=== PATIENT | female | born 1965 | race Hispanic/Latino ===

== ENCOUNTER 2018-02-15 11:37 | Emergency (ER) | payer BC, OTHER ==
[2018-02-15] MEDS ORDERED: Potassium ACETATE 40 MEQ/20 ML VIAL IV ONE (12:11)
[2018-02-15] MEDS ORDERED: Phenazopyridine HCl 97.5 MG TABLET ONE (12:11)
[2018-02-15 12:24] LABS: Bilirubin Small (Negative); Blood, Urine Large (Negative); Glucose, Urine (Dipstick) Negative (Negative); Leukocyte Trace (Negative); Nitrite Positive (Negative); Protein, Urine (Dipstick) 100 mg/dL (Neg-Trace); Urobilinogen 0.2 mg/dL (0.2-1.0)
[2018-02-15 12:28] LABS: Clarity CLOUDY (Clear)
[2018-02-15 12:29] LABS: Pregnancy Test - Urine (BHCG) Negative (Negative); Pregu Control Background? CLEAR/WHITE (CLR/WHITE); Pregu Control Bar Appear? YES (CONTROL BAR); Specific Gravity 1.023 (1.002-1.036); Specific Gravity, Urine 1.023 (1.002-1.036)
[2018-02-15 12:34] LABS: Bacteria/HPF 3+ HPF (None Seen); Hyaline Casts/LPF NONE SEEN LPF (0-3 Hyaline); RBC/HPF GREATER THAN 50-TNTC HPF (0-3); Squamous Epithelial 0-3 HPF (0-3); WBC/HPF 0-3 HPF (0-3)
--- NOTE | 2018-02-15 13:30 | CT ---
CT ABDOMEN AND PELVIS WITHOUT CONTRAST: 02/15/18 HISTORY: Abdominal pain, bladder pain, exacerbated by urinating. FINDINGS: Absence of oral and IV contrast reduces the sensitivity of the exam particularly for the evaluation o f solid organs and bowel. The lung bases are clear. No free air or free fluid is seen in the abdomen or pelvis. No calcified ga llstones are seen. Bilateral renal calculi are present. No calculi are noted in the ureters or the urinary bladder. No h ydroureteronephrosis is noted on either side. There is no evidence of aneurysmal dilatation of the abdominal aorta. the small bowel loops are not a bnormally dilated. Uterus and ovaries are present. There are mild degenerative changes in the spine. IMPRESSION: Nonobstructing bilateral renal calculi. POS: JENIFER
[2018-02-15] MEDS ORDERED: HYDROcodone/Acetaminophen 5/325 mg Tablet ONE (13:59)
[2018-02-15] MEDS ORDERED: Ciprofloxacin 500 MG TAB ONE (14:00)
== END 2018-02-15 14:03 | disposition home or self-care (01) ==
LOC: ERS 11:37
DX: N30.91 Cystitis, unspecified with hematuria (principal); Z87.442 Personal history of urinary calculi
CPT/HCPCS: 74176; 81003; 81015; 81025; 87077; 87086; 87186

== ENCOUNTER 2018-03-04 14:21 | Outpatient (CLI) | payer BC ==
--- NOTE | 2018-03-04 15:22 | ULT ---
PELVIC ULTRASOUND: HISTORY: Pelvic pain. COMPARISON: None. TECHNIQUE: Transabdominal and endovaginal imaging of the pelvis is performed. Ovaries are interrogated with gra y scale, color flow, Doppler imaging, and spectral waveform analysis. FINDINGS: Uterus is identified, without myometrial masses. Uterus measures 9.7 x 5.6 x 5.3 cm. Endometrium is poorly defined. There appears to be a complex nabothian cyst in the lower uterine segment measuring 1.1 cm. Right ovary has a normal echotexture measuring 1.5 x 2.3 x 2.0 cm. The left ovary may have a complex , septated cyst. Evaluation of the left ovary may have a complex, septated cyst. Evaluation of the left ovary is markedly limited. Possible left ovary measuring 1.9 x 1.8 x 2.9 cm. There is no free fluid. OVARIAN DOPPLER: There is vascular flow to the right ovary and the possible left ovary. IMPRESSION: Suboptimal evaluation of the left ovary as well as the endometrium. Pelvic MRI is recommended. POS: JENIFER
== END 2018-03-04 14:22 | disposition home or self-care (01) ==
LOC: BICULT 14:21
PROVIDERS: ATTEND Nurse Practitioner Family
DX: R10.2 Pelvic and perineal pain (principal)
CPT/HCPCS: 76856

== ENCOUNTER 2019-09-01 09:18 | Outpatient (CLI) | payer BC ==
--- NOTE | 2019-09-01 11:02 | RAD ---
TWO VIEW CHEST: HISTORY: Rheumatoid arthritis. COMPARISON: A portable film from 2013. Lungs appear clear. No significant interstitial thickening. Heart and mediastinum appear normal. V asculature normal. Osseous structures unremarkable. IMPRESSION: Unremarkable chest. POS: AGW
--- NOTE | 2019-09-01 11:17 | RAD ---
CERVICAL SPINE TOTAL OF 8 VIEWS: Lateral views obtained with neutral, flexion, and extension. INDICATION: Rheumatoid arthritis. FINDINGS: There are degenerative changes seen at C5-6. There is loss of disk space at C5-6 with anterior osteo phytes. Slight posterior listhesis at C5-6 with posterior spondylosis. Mild anterolisthesis at C4-5 measured at 3 mm. Minimal anterolisthesis at C3-4. Slight anterolisthe sis is also noted at C6-7. Mild facet hypertrophy at multiple levels. There is slight anterolisthesis seen at C3-4, C4-5, and C6-7 that does not appear to significantly ch breana with flexion, but it does reduce at all levels with extension. IMPRESSION: 1. Prominent degenerative changes at the C5-6 level with disk narrowing with spurring and posterior spondylosis with slight posterior listhesis. 2. There is mild anterolisthesis at C3-4, C4-5, and C6-7 with neutral and flexion positions. The li sthesis at each of these levels appears to reduce with extension. POS: MILADIS
== END 2019-09-01 09:19 | disposition home or self-care (01) ==
LOC: BICRAD 09:18
PROVIDERS: ATTEND Internal Medicine Rheumatology
DX: M05.79 Rheumatoid arthritis with rheumatoid factor of multiple sites without organ or systems involvement (principal); M47.812 Spondylosis without myelopathy or radiculopathy, cervical region; M43.12 Spondylolisthesis, cervical region; M46.02 Spinal enthesopathy, cervical region; M50.322 Other cervical disc degeneration at C5-C6 level
CPT/HCPCS: 71046; 72052

== ENCOUNTER 2021-12-25 09:26 | Outpatient (CLI) | payer BC | END 2021-12-25 09:27 | disposition home or self-care (01) | LOC: BICMAMMO 09:26 | PROVIDERS: ATTEND Nurse Practitioner Family | DX: Z12.31 Encounter for screening mammogram for malignant neoplasm of breast (principal); Z13.820 Encounter for screening for osteoporosis; M81.0 Age-related osteoporosis without current pathological fracture; M85.851 Other specified disorders of bone density and structure, right thigh; M85.852 Other specified disorders of bone density and structure, left thigh; Z80.3 Family history of malignant neoplasm of breast; Z91.89 Other specified personal risk factors, not elsewhere classified; Z87.39 Personal history of other diseases of the musculoskeletal system and connective tissue | CPT/HCPCS: 77063; 77067; 77080 ==

== ENCOUNTER 2023-02-18 10:04 | Outpatient (CLI) | payer BC | END 2023-02-18 10:05 | disposition home or self-care (01) | LOC: LABBT 10:04 | PROVIDERS: ATTEND Specialist | DX: Z01.818 Encounter for other preprocedural examination (principal); J38.3 Other diseases of vocal cords | CPT/HCPCS: 85014; 93005; 93010 ==

== ENCOUNTER 2023-02-19 06:24 | Day surgery (SDC) | payer BC ==
[2023-02-18 11:06] VITALS: BMI 25.0
[2023-02-19] MEDS ORDERED: fentaNYL PF 100 MCG/2 ML SYRINGE ONE (07:01)
[2023-02-19] MEDS ORDERED: PROPOFOL 20 ML ONE ×2 (07:01→07:34)
[2023-02-19] MEDS ORDERED: EPINEPHrine 1 MG/ML VIAL ONE (07:46)
[2023-02-19] MEDS ORDERED: Ketorolac Tromethamine 30 MG/ML VIAL ONE (08:00)
[2023-02-19] MEDS ORDERED: Succinylcholine 200 MG/10 ml SYRINGE FS ONE (08:00)
[2023-02-19] MEDS ORDERED: PROPOFOL 200 MG/20 ML VIAL ONE (08:00)
[2023-02-19] MEDS ORDERED: Lidocaine 1% PF 5 ML VIAL ONE (08:00)
[2023-02-19] MEDS ORDERED: Ondansetron PF 4 MG/2 ML Vial ONE (08:00)
[2023-02-19] MEDS ORDERED: Lidocaine 1% MPF 2 ML VIAL ONE (08:11)
== END 2023-02-19 10:25 | disposition home or self-care (01) ==
LOC: SDC 06:24
PROVIDERS: ATTEND Specialist
PROC: 0CBS8ZX Excision of Larynx, Via Natural or Artificial Opening Endoscopic, Diagnostic (ICD-10-PCS; principal; 2023-02-19)
DX: J38.7 Other diseases of larynx (principal); R07.0 Pain in throat; K21.9 Gastro-esophageal reflux disease without esophagitis; Z88.0 Allergy status to penicillin; Z88.2 Allergy status to sulfonamides
CPT/HCPCS: 88305; J0171; J1885; J2405; J2704

== ENCOUNTER 2023-03-13 12:48 | Outpatient (CLI) | payer BC | END 2023-03-13 12:49 | disposition home or self-care (01) | LOC: BICULT 12:48 | PROVIDERS: ATTEND Internal Medicine Gastroenterology | DX: K21.9 Gastro-esophageal reflux disease without esophagitis (principal); R79.89 Other specified abnormal findings of blood chemistry | CPT/HCPCS: 76705 ==

== ENCOUNTER 2023-04-20 16:00 | Outpatient (CLI) | payer BC | END 2023-04-20 16:01 | disposition home or self-care (01) | LOC: SLEEPLAB 16:00 | PROVIDERS: ATTEND Family Medicine | DX: G47.33 Obstructive sleep apnea (adult) (pediatric) (principal); R53.83 Other fatigue; R09.89 Other specified symptoms and signs involving the circulatory and respiratory systems; R51.9 Headache, unspecified | CPT/HCPCS: 95800 ==

== ENCOUNTER 2024-10-28 11:34 | Outpatient (CLI) | payer BC | END 2024-10-28 11:35 | disposition home or self-care (01) | LOC: BICRAD 11:34 | PROVIDERS: ATTEND Internal Medicine Gastroenterology | DX: T18.3XXA Foreign body in small intestine, initial encounter (principal) | CPT/HCPCS: 74018 ==

== ENCOUNTER 2024-12-14 20:58 | Emergency (ER) | payer BC ==
[2024-12-14] MEDS ORDERED: Ketorolac Tromethamine 30 MG (1 mL) VIAL ONE (22:24)
[2024-12-14 22:48] LABS: #Basophils 0.03 10x3/uL (0.0-0.2); #Eosinophils 0.10 10x3/uL (0.0-0.7); #Monocytes 0.60 10x3/uL (0.11-0.59); #Neutrophils 4.59 10x3/uL (1.40-6.50); %Basophils 0.4 % (0.0-1.0); %Eosinophils 1.3 % (0.0-10.0); %Lymphocytes 31.4 % (21.0-51.0); %Monocytes 7.7 % (0.0-10.0); %Neutrophils 58.7 % (42.0-75.0); Hematocrit 39.7 % (36.0-47.0); Hemoglobin 12.7 g/dL (12.0-16.0); Mean Corpuscular Hemoglobin 30.7 pg (27.0-31.0); Mean Corpuscular Volume 95.9 fL (78.0-98.0); Platelet Count 281 10x3/uL (130-400); Red Blood Cell (RBC) Count 4.14 mill/uL (4.20-5.40); White Blood Cell (WBC) Count 7.81 10x3/uL (4.8-10.8)
[2024-12-14 23:10] LABS: ALT (SGPT) 9 U/L (Less than 34); AST (SGOT) 16 U/L (11-34); Albumin 3.6 g/dL (3.1-4.5); Alkaline Phosphatase 109 U/L (40-110); Anion Gap 15 mmol/L (10-20); BUN (Urea Nitrogen) 12 mg/dL (9.8-20.1); Bilirubin, Total 0.4 mg/dL (0.3-1.2); Calc. Creatinine Clearance 0 mL/min (70-130); Calcium 8.9 mg/dL (7.8-10.44); Carbon Dioxide 26 mmol/L (22-29); Chloride 103 mmol/L (98-107); Globulin 3.2 g/dL (2.4-3.5); Glucose 110 mg/dL (70-105); Potassium 4.1 mmol/L (3.5-5.1); Sodium 140 mmol/L (136-145)
[2024-12-14] MEDS ORDERED: Vancomycin 1 GM/200 ML (FROZEN) BAG ONE (23:54)
[2024-12-15] MEDS ORDERED: LevoFLOXacin 750 mg/D5W 150 ml Premix Bag ONE (01:23)
== END 2024-12-15 03:13 | disposition home or self-care (01) ==
LOC: ERS 20:58
DX: N61.0 Mastitis without abscess (principal)
CPT/HCPCS: 80053; 83605; 85025; 96365; 96366; 96367; J1885; J1956; J3373